=== PATIENT | female | born 1975 | race Caucasian/White ===

== ENCOUNTER 2017-07-10 16:47 | Emergency (ER) | payer OTHER ==
[~2017-07-10] VITALS: Ht 160 cm; Wt 84.4 kg
[~2017-07-10 16:47] MED LIST: AMO500 PO; BIA500 PO; LAC PO; METP PO; NEXIUM40 MG PO
[2017-07-10 18:36] VITALS: BP 148/67
== END 2017-07-10 18:36 | disposition home or self-care (01) ==
LOC: ED 16:47
DX: R51 Headache (principal); F17.210 Nicotine dependence, cigarettes, uncomplicated; Z71.6 Tobacco abuse counseling
CPT/HCPCS: 99406; J3030

== ENCOUNTER 2018-04-11 14:44 | Inpatient (IN) | payer OTHER ==
[~2018-04-11] VITALS: Ht 160 cm; Wt 83.9 kg
[2018-04-11 14:57] VITALS: Ht 160 cm; Wt 83.9 kg
--- NOTE | 2018-04-11 15:18 | NUR ---
MSE COMPLETED BY DR HART. PT PRESENTS TO ED WITH C/O L SHOULDER UPPER BACK NECK PAIN X 2 WKS RADIATING TO MID CHEST X 2 DAYS. PT DENIES ANY TRAUMA REPORTS SLIGHT DIZZINESS AND NAUSEA WELL. PT AAOX4 NO DISTRESS WAS SEEN BY PMD YESTERDAY PRESCRIBED MEDICATION FOR PAIN THAT IS NOT HELPING. PT GOWNED ON CM NSR VSS LAB AT BEDSIDE FOR BLOOD DRAW INST TO PROVIDE URINE SOON POSSIBLE. PT LYING IN BED IN POSITION OF COMFORT AWAITING FURTHER MD ORDERS WILL MONITOR.
[2018-04-11 15:34] LABS: PLATELET COUNT 342 x10^3mcL (130-400)
[2018-04-11 15:35] LABS: BASOPHIL % 2.6 % (0-2); RED CELL DISTRIBUTION WIDTH 14.9 % (11.5-14.5)
--- NOTE | 2018-04-11 15:35 | NUR ---
PT REPORTS PAIN IMPROVEMENT POST MEDICATING 05/29 NOW IN ALL AREAS. HOWEVER PT REPORTS T[place]OCO NOW. ER MD AWARE AWAITING FURTHER ORDERS
[2018-04-11] MEDS ORDERED: IMITREX50 MG (15:36)
[2018-04-11] MEDS ORDERED: ROBAXIN500 MG (15:37)
[2018-04-11] MEDS ORDERED: PROMETRIUM100 MG (15:37)
[2018-04-11] MEDS ORDERED: CYCLOBENZAPRINE5 MG (15:37)
[2018-04-11 15:47] LABS: CALCIUM 9.6 mg/dL (8.5-10.1); CARBON DIOXIDE 32.1 mmol/L (21-32); CHLORIDE SERUM 102 mmol/L (98-107); CREATININE SERUM 0.8 mg/dL (0.6-1.0); GFR1 > 60 mL/min; GLUCOSE SERUM 98 mg/dL (74-106); POTASSIUM SERUM 3.7 mmol/L (3.5-5.1); SODIUM SERUM 137 mmol/L (136-145)
[2018-04-11 15:51] LABS: ALBUMIN 3.6 g/dL (3.4-5.0); ALKALINE PHOSPHATASE 55 U/L (46-116); ALT/SGPT 22 U/L (14-59); AMYLASE 71 U/L (25-115); AST/SGOT 17 U/L (15-37); CHOLESTEROL 183 mg/dL (<200); HDL CHOLESTEROL 51 mg/dL (40-60); LIPASE 189 IU/L (73-393); TOTAL PROTEIN, SERUM 7.8 g/dL (6.4-8.2)
[2018-04-11 15:56] LABS: UA SPECIFIC GRAVITY <=1.005 (1.005-1.035); microscopic required? YES; urine erythrocyte TRACE (NEGATIVE)
[2018-04-11 16:03] LABS: AMPHETAMINE QUAL UR NONE DETECTED (See below)
--- NOTE | 2018-04-11 16:30 | NUR ---
RECEIVED REPORT FROM KAITE FARRIS IN ED. AWAITING PT ARRIVAL TO FLOOR.
--- NOTE | 2018-04-11 16:38 | NUR ---
PT REPORTS 2/10 TINOCO NOW FEELS A LOT BETTER POST MEDICATIONS. PT AAOX4 NO DISTRESS NSR VSS REPORT GIVEN TO YANG RN RESUMING CARE OF PT IN TELE FLOOR
--- NOTE | 2018-04-11 16:42 | NUR ---
PT TO TELE FLOOR VIA GURYESENIA IN NO DISTRESS ON PORTABLE CM WITH CHARBEL FARRIS AND ENDER CAMPOS. YANG FARRIS RESUMING CARE OF PT
--- NOTE | 2018-04-11 16:57 | NUR ---
RECEIVED PT FROM ED VIA NAYANA ACCOMPANIED BY CHARBEL FARRIS. PT AMBULATED TO BED ALONE. GAIT STEADY. IV TO RAC IS PATENT AND INTACT. NO REDNESS OR PAIN. PT C/O CHEST PAIN RADIATING TO LT SHOULDER, BACK AND NECK 04/28. PT REPORTS IT IS BETTER THAN BEFORE. TELE # [id number] APPLIED. PT ON ROOM AIR. C/O MILD SOB BUT O2 SAT IS 98% ON ROOM AIR. ALL QUESTIONS AND CONCERNS ADDRESSED.
[2018-04-11 17:10] VITALS: BP 132/83
--- NOTE | 2018-04-11 18:47 | NUR ---
WENT IN TO ADMINISTER VACCINES AND PT INQUIRED IF THEY WILL MAKE HER SICK. I DISCUSSED POSSIBLE REACTIONS THE PATIENT ARLET EXPERIENCE AND SHE STATED THAT SHE NO LONGER WANTS THE VACCINES. UNABLE TO RETURN VACCINES TO [facility]. RETURNED FLU AND PNEUMOCOCCAL VACCINE TO GERARD GARRIDO.
--- NOTE | 2018-04-11 19:24 | NUR ---
REPORT GIVEN TO CHANELLE FARRIS. PT RESTING COMFORTABLY IN BED WITH FAMILY AT BEDSIDE. ALL NEEDS MET. ALL QUESTIONS AND CONCERNS ADDRESSED. ALL CARES ENDORSED.
--- NOTE | 2018-04-11 19:35 | NUR ---
PT RESTING IN BED, FAMILY AT BEDSIDE. AOX4, REPORTING PERSISTENT TINOCO, WILL MEDICATE PER ORDER. EDUCATED PT THE S/E OF NITRO WHICH WAS ADMINISTERED IN ED (TINOCO D/T VASODILATION), PT VERBLIZES UNDERSTANDING. TELE #28, SR 65, DENIES CP AT THIS TIME. PULSES PALPABLE BILAT, DENIES NUMBNESS/TINGLING IN FEET. RESP EVEN AND UNLABORED ON RA, DENIES SOB AT THIS TIME. REPORTS SOME SOB W/ AMBULATION. ENCOURAGED PT TO USE CALL LIGHT IF NEEDING ASSISTANCE DURING NIGHT TO ENSURE SAFETY. ABD SOFT, ROUND, DENIES ABD PAIN. PT VOIDS FREELY W/O DYSURIA, AMBULATORY. SKIN INTACT. IV SITE TO RAC SALINE LOCKED, NO REDNESS, SWELLING OR PAIN NOTED. ALL COMFORT AND SAFETY MEASURES PROVIDED FOR, CALL LIGHT WITHIN REACH, BED IN LOWEST POSITION, WILL CONTINUE TO MONITOR.
[2018-04-11 20:36] VITALS: BP 123/91
--- NOTE | 2018-04-11 23:40 | NUR ---
PT REPORTING WORSENING TINOCO, UNRELIEVED BY THE IMITREX PROVIDED EARLIER. PT REPORTS THROBBING TINOCO, NAUSEA AND DIAPHORETIC. SPOT CHECKED PT BS= 97, PAGING DR. KEVIN AT THIS TIME. TELE STRIP DEMONSTRATING SINUS RHYTHM 80'S AT THIS TIME. PT DENIES CP. PT DENIES WANTING NAUSEA MEDICATION AT THIS TIME.
[2018-04-12 02:11] LABS: FREE T4 0.91 ng/dL (0.76-1.46); FREE THYROXINE INDEX 2.8 ug/dL (1.4-4.5); T4(THYROXINE) 9.2 ug/dL (4.7-13.3)
[2018-04-12 02:33] LABS: T3 TOTAL 1.04 ng/mL
--- NOTE | 2018-04-12 05:15 | NUR ---
PT RESTED IN INTERVALS DURING SHIFT, PT HAD ONE EPISODE OF NAUSEA R/T THROBBING MIGRAINE. PT REPORTS IMITREX DID NOT WORK, MEDICATED WITH NORCO AND UPON 30 MIN ASSESSMENT, PT REPORTS PAIN HAS SUBSIDED AND IS ABLE TO REST BETTER. PT DENIES CP DURIGN SHIFT, ALL COMFORT AND SAFETY MEASURES PROVIDED FOR, CALL LIGHT WITHIN REACH, BED IN LOWEST POSITION, WILL CONTINUE TO MONITOR.
[2018-04-12 05:19] VITALS: BP 104/69
--- NOTE | 2018-04-12 06:00 | NUR ---
PT RESTING IN BED, REPORTS TINOCO HAS SUBSIDEDA GOOD AMOUNT, DENIES N/V. PT NONDIAPHORETIC AT THIS TIME AND DENIES CP. IV SITE REMAINS PATENT TO RAC, SALINE LOCKED. ALL COMFORT AND SAFETY MEASURES PROVIDED FOR, CALL LIGHT WIHTIN REACH, BED IN LOWEST POSITION.
[2018-04-12 06:46] LABS: BASOPHIL % 0.5 % (0-2); PLATELET COUNT 298 x10^3mcL (130-400); RED CELL DISTRIBUTION WIDTH 14.5 % (11.5-14.5)
[2018-04-12 06:59] LABS: CALCIUM 8.9 mg/dL (8.5-10.1); CARBON DIOXIDE 29.2 mmol/L (21-32); CHLORIDE SERUM 106 mmol/L (98-107); CREATININE SERUM 0.7 mg/dL (0.6-1.0); GFR1 > 60 mL/min; GLUCOSE SERUM 101 mg/dL (74-106); MAGNESIUM 1.9 mg/dL (1.8-2.4); POTASSIUM SERUM 4.2 mmol/L (3.5-5.1); SODIUM SERUM 142 mmol/L (136-145)
--- NOTE | 2018-04-12 07:30 | NUR ---
RECEIVED REPORT FROM [facility] SHIFT RN CHANELLE, ALL QUESTIONS AND CONCERNS ADDRESSED AT THIS TIME. WILL ASSUME ALL CARE.
[2018-04-12 07:49] VITALS: BP 115/70
--- NOTE | 2018-04-12 08:00 | NUR ---
PT COMPLAINING OF SEVERE HEADACHE AT THIS TIME AND SOME MILD NAUSEA. PT MEDICATED WITH PO NORCO. PT DENIES CP, DIZZINESS, SOB, DYSURIA AND ANY OTHER DISTRESS. PT IS ALERT AND ORIENTED X 4, SPEECH CLEAR, AMBUALTORY AND ON TELE MONITOR. PT LAYING IN BED WITH EYES CLOSED AND BREAKFAST AT BEDSIDE. PT HAS CALL LIGHT IN REACH, BED IN LOWEST POSITION.
--- NOTE | 2018-04-12 10:00 | NUR ---
PT VOMITING AND COMPLAINING OF SEVERE HEADACHE. WILL MEDICATE WITH PRN MORPHINE AND ZOFRAN. EDUCATED PT ON EATING WHILE TAKING NORCO, PT VERBALIZES UNDERSTANDING.
--- NOTE | 2018-04-12 10:58 | NUR ---
PT SLEEPING WELL AT THIS TIME AND DENIES PAIN.
--- NOTE | 2018-04-12 11:53 | NUR ---
NOTIFIED OF PT MIGRAINES, PER ORDER COMPAZINE 10 MG PO Q6H PRN FOR MIGRAINES. WILL FOLLOW OUT ORDERS.
[2018-04-12 12:34] VITALS: BP 118/75
--- NOTE | 2018-04-12 12:45 | NUR ---
PT STILL COMPLAINING OF MILD HEADACHE AND NAUSEA, WILL MEDICATE WITH PRN COMPAZINE.
[2018-04-12] MEDS ORDERED: COMPAZINE10 M1 PO (14:39)
--- NOTE | 2018-04-12 14:51 | NUR ---
AT BEDSIDE SPEAKING TO PATIENT REGARDING DC ORDER. PT VERBALIZES UNDERSTANDING AND IS ACCEPTABLE TO BEING DC'D AT THIS TIME. PER PATIENT MILD HEADACHE AT THIS TIME BUT FEELING BETTER.
[2018-04-12 14:52] VITALS: BP 118/75
--- NOTE | 2018-04-12 15:13 | NUR ---
DC INSTRUCTIONS PROVIDED AT THIS TIME, ALL QUESTIONS AND CONCERNS ADDRESSED. ALL BELONGINGS RETURNED INCLUDING PHONE, BLANKET ETC. PRESCRIPTION PROVIDED, COPY IN CHART. IV DC'D AT THIS TIME CATH INTACT. PT WHEELED OFF UNIT WITH FAMILY WITHOUT INCIDENT.
== END 2018-04-12 15:22 | disposition home or self-care (01) | DRG 54 ==
LOC: ED 14:44 → DU 16:01
PROVIDERS: Emergency Medicine; ADMIT Internal Medicine Pulmonary Disease
DX: G43.909 Migraine, unspecified, not intractable, without status migrainosus (principal); F17.200 Nicotine dependence, unspecified, uncomplicated; R07.9 Chest pain, unspecified; Z82.49 Family history of ischemic heart disease and other diseases of the circulatory system; Z23 Encounter for immunization
CPT/HCPCS: 82962; 83880; 84439; 90658; 90732; J2270; J2405; Q0092; Q0164

== ENCOUNTER 2019-04-24 03:01 | Emergency (ER) | payer OTHER ==
[~2019-04-24] VITALS: Ht 162.6 cm; Wt 85.3 kg
[~2019-04-24 03:01] MED LIST changes: +COMPAZINE10 M1 PO; +CYCLOBENZAPRINE5 MG; +IMITREX50 MG; +PROMETRIUM100 MG; +ROBAXIN500 MG
[2019-04-24 03:09] VITALS: Ht 162.6 cm; Wt 85.3 kg
[2019-04-24 03:53] VITALS: BP 126/76
== END 2019-04-24 03:54 | disposition home or self-care (01) ==
LOC: ED 03:01
DX: H60.92 Unspecified otitis externa, left ear (principal); G43.909 Migraine, unspecified, not intractable, without status migrainosus; R20.2 Paresthesia of skin